=== PATIENT | male | born 1935 | race African-American/Black ===

== ENCOUNTER 2018-07-24 10:53 | Day surgery (SDC) | payer OTHER ==
[2018-07-21 18:00] VITALS: BMI 26.6
--- NOTE | 2018-07-24 11:53 | HP ---
History & Physical Update - History History: No Change - Physical Physical: No Change - Assessment Assessment: No Change - Plan Plan: No Change
--- NOTE | 2018-07-24 11:55 | OP ---
Operative Note - Note: Operative Date: 07/24/18 Pre-Operative Diagnosis: prostate cancer Operation: prostate cryoablation and cystoscopy Findings: prostate ca Post-Operative Diagnosis: Same as Pre-op Surgeon: Froylan Alejandra Anesthesiologist/DIRECTOR OF INSTRUCTION: Ness Gamez Anesthesia: General Estimated Blood Loss (mls): 0 Drains & Tubes with Location: [address] [place] Operative Report Dictated: Yes
[2018-07-24] MEDS ORDERED: PROPOFOL 20 ML ONE (12:13)
[2018-07-24] MEDS ORDERED: ceFAZolin SODIUM 1 GM VIAL IVPB ONE (12:55)
[2018-07-24] MEDS ORDERED: ceFAZolin SODIUM 1 GM VIAL ONE ×2 (12:56→12:59)
[2018-07-24] MEDS ORDERED: DEXAMETHASONE SOD PHOSPHATE 4 MG/1 ML VIAL ONE (13:10)
--- NOTE | 2018-07-24 14:56 | OP ---
DATE OF OPERATION: 07/24/2018 PREOPERATIVE DIAGNOSIS: Prostate cancer. POSTOPERATIVE DIAGNOSIS: Prostate cancer. PROCEDURE: Prostate cryoablation and cystoscopy. SURGEON: Froylan Olivares MD ZIPPER CUTTER: None. ANESTHESIA: General via laryngeal mask. ANESTHESIOLOGIST: Grisel Scott MD SPECIMENS: None. CULTURES: None. DRAINS: An 18-[place] Tucker catheter. ESTIMATED BLOOD LOSS: None. COMPLICATIONS: None. PROCEDURE WAS FOLLOWS: Patient was brought into the operating room, placed on the operating table in the supine position. After administration of general anesthesia via laryngeal mask, intravenous antibiotics were administered, sequential compression devices were placed. The patient was placed in dorsal lithotomy position. Perineum was shaved first, and perineum and genitals were prepped and draped in the usual sterile manner. An 18-[place] Tucker catheter was placed per urethra into the bladder, 10 mL was placed in the balloon, and the bladder was filled with 350 mL of sterile normal saline. The Tucker catheter was then clamped. The [place] drape was placed, and then, the patient was prepped and draped in the usual sterile manner. The transrectal ultrasound probe was placed, and prostate ultrasound was done, and planning was done for the prostate cryoablation. Once the plan was obtained, the 6 cryoablation probes were placed in their appropriate locations under ultrasound guidance. Measurements were taken for the length, for treatment of each probe, and these were set accordingly. Now, temperature sensors were placed in [place]illiers fascia and in the external sphincter. Now, the Tucker catheter was removed, and flexible cystoscopy was performed. It demonstrated a normal anterior urethra. The prostatic urethra demonstrated status post UroLift. There were no probes within the prostatic urethra. The bladder was entered and thoroughly inspected. There were no foreign bodies, tumors, stones, inflammations. Both ureteral orifices were in their usual location with clear efflux bilaterally. There were no prostate cryo probes within the bladder, as well. The Super Stiff Guidewire was inserted, and the cystoscope removed. The urethral warmer was placed over the guidewire into the bladder, and urethral warming was started. Now, the prostate cryoablation was done after reconfirming the probe position with two temperature sensors, one in external sphincter, one in Denonvilliers fascia. Two freeze-thaw cycles were done. The probes were removed as were the temperature sensors. Urethral warmer was left in place for an additional 5 minutes. The wound was sterilely dressed with 4x4 and Tegaderm. He tolerated the procedure well, transferred to recovery in stable condition. An 18-[place] Tucker catheter had been replaced. FROYLAN OLIVARES M.D. [id number]
[2018-07-24] MEDS ORDERED: oxyCODONE HCL 5 MG TABLET ONE (17:15)
[2018-07-24] MEDS ORDERED: oxyCODONE HCL 5 MG TABLET PO PRN (17:16)
[2018-07-24] MEDS ORDERED: ONDANSETRON 4 MG/2 ML VIAL IVPUSH PRN (17:16)
[2018-07-24] MEDS ORDERED: LACTATED RINGERS SOLUTION 1,000 ML IV SCH (17:30)
[2018-07-24 18:53] VITALS: BP 149/88; PULSE 88; TEMP 97.4
== END 2018-07-24 18:45 | disposition home or self-care (01) ==
LOC: JASU-SURG 10:53 → EDSEX 12:00 → JASU-SURG 18:45
PROVIDERS: ATTEND Urology
PROC: 0V503ZZ Destruction of Prostate, Percutaneous Approach (ICD-10-PCS; principal; 2018-07-24 12:00)
DX: C61 Malignant neoplasm of prostate (principal)
CPT/HCPCS: 55873; C2618; 86850; 86900; 86901; 94760